=== PATIENT | male | born 1945 ===

== ENCOUNTER 2024-11-15 02:22 | Outpatient (CLI) | payer OTHER, SELFPAY ==
[2024-11-15 12:26] LABS: Abs Immature Grans 0.02 10^3/uL (0.0-0.06); HCT 45.2 % (40.0-50.0); HGB 15.1 g/dL (13.5-17.5); Immature Grans % 0.3 %; MCH 29.7 pg (27.0-33.0); MCHC 33.4 % (32.0-36.0); MCV 89 fL (80-95); MPV 10.3 fL (8.0-11.0); Platelet Count 264 10^3/uL (130-400); RBC 5.09 10^6/uL (4.36-5.78); RDW 12.1 % (11.8-14.1); RDW-SD 39.9 fL; WBC 7.49 10^3/uL (4.4-10.8)
[2024-11-15 13:12] LABS: ALT 25 U/L (16-63); AST 21 U/L (15-37); Albumin 4.1 g/dL (3.4-5.0); Alkaline Phosphatase 93 U/L (46-116); Anion Gap 6.7 mmol/L (3-11); BUN 10 mg/dL (7-18); Bilirubin, Total 0.4 mg/dL (0.2-1.0); CO2 31.3 mmol/L (21.0-32.0); Calcium 9.6 mg/dL (8.5-10.1); Chloride 102 mmol/L (98-107); Estimated GFR 91.15 (mL/min/1.73m2); Glucose 105 mg/dL (74-106); Potassium 4.3 mmol/L (3.5-5.1); Sodium 140 mmol/L (136-145); Total Protein 7.6 g/dL (6.4-8.2)
== END 2024-11-15 02:23 | disposition home or self-care (01) ==
LOC: LBO 02:23
PROVIDERS: Visit Provider Student in an Organized Health Care Education/Training Program
DX: C61 Malignant neoplasm of prostate (principal)
CPT/HCPCS: 36415; 80053; 84153; 84403; 85025

== ENCOUNTER 2024-12-18 12:41 | Outpatient (CLI) | payer OTHER, SELFPAY ==
[2024-12-18 12:48] LABS: Abs Immature Grans 0.03 10^3/uL (0.0-0.06); HCT 41.7 % (40.0-50.0); HGB 14.0 g/dL (13.5-17.5); Immature Grans % 0.3 %; MCH 29.7 pg (27.0-33.0); MCHC 33.6 % (32.0-36.0); MCV 88 fL (80-95); MPV 10.2 fL (8.0-11.0); Platelet Count 266 10^3/uL (130-400); RBC 4.72 10^6/uL (4.36-5.78); RDW 12.4 % (11.8-14.1); RDW-SD 40.3 fL; WBC 10.03 10^3/uL (4.4-10.8)
[2024-12-18 13:22] LABS: ALT 27 U/L (16-63); AST 31 U/L (15-37); Albumin 4.2 g/dL (3.4-5.0); Alkaline Phosphatase 92 U/L (46-116); Anion Gap 9.5 mmol/L (3-11); BUN 20 mg/dL (7-18); Bilirubin, Total 0.5 mg/dL (0.2-1.0); CO2 28.5 mmol/L (21.0-32.0); Calcium 9.6 mg/dL (8.5-10.1); Chloride 100 mmol/L (98-107); Estimated GFR 77.52 (mL/min/1.73m2); Glucose 85 mg/dL (74-106); Potassium 4.2 mmol/L (3.5-5.1); Sodium 138 mmol/L (136-145); Total Protein 7.8 g/dL (6.4-8.2)
== END 2024-12-18 12:42 | disposition home or self-care (01) ==
LOC: LBO 12:41
PROVIDERS: Visit Provider Student in an Organized Health Care Education/Training Program
DX: C61 Malignant neoplasm of prostate (principal)
CPT/HCPCS: 36415; 80053; 84153; 84403; 85027; 85025

== ENCOUNTER 2025-02-05 12:47 | Outpatient (CLI) | payer OTHER, SELFPAY ==
[2025-02-05 10:47] LABS: Abs Immature Grans 0.02 10^3/uL (0.0-0.06); HCT 38.8 % (40.0-50.0); HGB 12.7 g/dL (13.5-17.5); Immature Grans % 0.2 %; MCH 29.7 pg (27.0-33.0); MCHC 32.7 % (32.0-36.0); MCV 91 fL (80-95); MPV 10.4 fL (8.0-11.0); Platelet Count 253 10^3/uL (130-400); RBC 4.27 10^6/uL (4.36-5.78); RDW 13.2 % (11.8-14.1); RDW-SD 44.2 fL; WBC 8.38 10^3/uL (4.4-10.8)
[2025-02-05 11:12] LABS: ALT 24 U/L (16-63); AST 14 U/L (15-37); Albumin 3.6 g/dL (3.4-5.0); Alkaline Phosphatase 183 U/L (46-116); Anion Gap 8.5 mmol/L (3-11); BUN 14 mg/dL (7-18); Bilirubin, Total 0.6 mg/dL (0.2-1.0); CO2 26.5 mmol/L (21.0-32.0); Calcium 9.3 mg/dL (8.5-10.1); Chloride 106 mmol/L (98-107); Estimated GFR 94.90 (mL/min/1.73m2); Glucose 88 mg/dL (74-106); Potassium 3.5 mmol/L (3.5-5.1); Sodium 141 mmol/L (136-145); Total Protein 6.9 g/dL (6.4-8.2)
== END 2025-02-05 12:48 | disposition home or self-care (01) ==
LOC: LBO 12:48
PROVIDERS: Visit Provider Internal Medicine
DX: C61 Malignant neoplasm of prostate (principal); C77.5 Secondary and unspecified malignant neoplasm of intrapelvic lymph nodes
CPT/HCPCS: 36415; 80053; 84153; 84403; 85025

== ENCOUNTER 2025-03-25 11:00 | Outpatient (CLI) | payer OTHER, SELFPAY ==
[2025-03-25 10:22] LABS: Abs Immature Grans 0.03 10^3/uL (0.0-0.06); HCT 35.8 % (40.0-50.0); HGB 12.5 g/dL (13.5-17.5); Immature Grans % 0.4 %; MCH 30.7 pg (27.0-33.0); MCHC 34.9 % (32.0-36.0); MCV 88 fL (80-95); MPV 10.1 fL (8.0-11.0); Platelet Count 219 10^3/uL (130-400); RBC 4.07 10^6/uL (4.36-5.78); RDW 12.4 % (11.8-14.1); RDW-SD 40.1 fL; WBC 6.82 10^3/uL (4.4-10.8)
[2025-03-25 10:55] LABS: ALT 13 U/L (10-49); AST 19 U/L (<34); Albumin 4.3 g/dL (3.2-5.0); Alkaline Phosphatase 91 U/L (46-116); Anion Gap 8.6 mmol/L (3-11); BUN 14 mg/dL (9-23); Bilirubin, Total 0.4 mg/dL (0.2-1.2); CO2 26.4 mmol/L (20.0-31.0); Calcium 8.7 mg/dL (8.3-10.6); Chloride 108 mmol/L (98-107); Glucose 106 mg/dL (74-106); Potassium 2.9 mmol/L (3.5-5.1); Sodium 143 mmol/L (136-145); Total Protein 6.7 g/dL (5.7-8.2)
== END 2025-03-25 11:01 | disposition home or self-care (01) ==
LOC: LBO 11:00
PROVIDERS: Visit Provider Internal Medicine
DX: C61 Malignant neoplasm of prostate (principal); C77.5 Secondary and unspecified malignant neoplasm of intrapelvic lymph nodes
CPT/HCPCS: 36415; 80053; 84153; 84403; 85025

== ENCOUNTER 2025-04-01 01:31 | Outpatient (CLI) | payer MEDICARE, SELFPAY ==
[2025-04-01 15:16] LABS: ALT 14 U/L (10-49); AST 20 U/L (<34); Albumin 4.1 g/dL (3.2-5.0); Alkaline Phosphatase 85 U/L (46-116); Anion Gap 9.2 mmol/L (3-11); BUN 15 mg/dL (9-23); Bilirubin, Total 0.3 mg/dL (0.2-1.2); CO2 26.8 mmol/L (20.0-31.0); Calcium 9.3 mg/dL (8.3-10.6); Chloride 106 mmol/L (98-107); Glucose 97 mg/dL (74-106); Potassium 3.9 mmol/L (3.5-5.1); Sodium 142 mmol/L (136-145); Total Protein 7.0 g/dL (5.7-8.2)
== END 2025-04-01 01:32 | disposition home or self-care (01) ==
LOC: LBO 01:31
PROVIDERS: Visit Provider Nurse Practitioner
DX: C61 Malignant neoplasm of prostate (principal); C77.8 Secondary and unspecified malignant neoplasm of lymph nodes of multiple regions
CPT/HCPCS: 36415; 80053

== ENCOUNTER 2025-04-08 07:15 | Outpatient (CLI) | payer MEDICARE, SELFPAY ==
[2025-04-08 11:11] LABS: Abs Immature Grans 0.03 10^3/uL (0.0-0.06); HCT 36.4 % (40.0-50.0); HGB 12.4 g/dL (13.5-17.5); Immature Grans % 0.6 %; MCH 30.2 pg (27.0-33.0); MCHC 34.1 % (32.0-36.0); MCV 89 fL (80-95); MPV 9.3 fL (8.0-11.0); Platelet Count 214 10^3/uL (130-400); RBC 4.10 10^6/uL (4.36-5.78); RDW 12.4 % (11.8-14.1); RDW-SD 40.3 fL; WBC 5.04 10^3/uL (4.4-10.8)
[2025-04-08 11:40] LABS: ALT 12 U/L (10-49); AST 19 U/L (<34); Albumin 4.2 g/dL (3.2-5.0); Alkaline Phosphatase 89 U/L (46-116); Anion Gap 7.8 mmol/L (3-11); BUN 12 mg/dL (9-23); Bilirubin, Total 0.3 mg/dL (0.2-1.2); CO2 28.2 mmol/L (20.0-31.0); Calcium 9.4 mg/dL (8.3-10.6); Chloride 107 mmol/L (98-107); Glucose 86 mg/dL (74-106); Potassium 4.0 mmol/L (3.5-5.1); Sodium 143 mmol/L (136-145); Total Protein 6.9 g/dL (5.7-8.2)
== END 2025-04-08 07:16 | disposition home or self-care (01) ==
PROVIDERS: Nurse Practitioner; Visit Provider Internal Medicine
DX: C61 Malignant neoplasm of prostate (principal); C77.5 Secondary and unspecified malignant neoplasm of intrapelvic lymph nodes
CPT/HCPCS: 36415; 80053; 84153; 84403; 85025